=== PATIENT | female | born 2005 | race Caucasian/White ===

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

== ENCOUNTER 2024-04-03 13:33 | Outpatient (RCR) | payer MEDICAID, SELFPAY | END 2024-04-18 23:59 | disposition home or self-care (01) | LOC: SPT 13:33 | PROVIDERS: Visit Provider Orthopaedic Surgery | DX: S83.522D Sprain of posterior cruciate ligament of left knee, subsequent encounter (principal); Z47.89 Encounter for other orthopedic aftercare; X58.XXXD Exposure to other specified factors, subsequent encounter | CPT/HCPCS: 97110; 97140; 97161 ==

== ENCOUNTER 2024-04-19 06:00 | Outpatient (RCR) | payer MEDICAID, SELFPAY | END 2024-05-16 23:59 | disposition home or self-care (01) | LOC: SPT 06:00 | PROVIDERS: Visit Provider Orthopaedic Surgery | DX: S83.522D Sprain of posterior cruciate ligament of left knee, subsequent encounter (principal); X58.XXXD Exposure to other specified factors, subsequent encounter | CPT/HCPCS: 97110 ==

== ENCOUNTER 2024-05-17 06:00 | Outpatient (RCR) | payer MEDICAID, SELFPAY | END 2024-06-16 23:59 | disposition home or self-care (01) | LOC: SPT 06:00 | PROVIDERS: Visit Provider Orthopaedic Surgery | DX: S83.522D Sprain of posterior cruciate ligament of left knee, subsequent encounter (principal); X58.XXXD Exposure to other specified factors, subsequent encounter | CPT/HCPCS: 97110 ==

== ENCOUNTER 2024-06-17 11:54 | Outpatient (RCR) | payer MEDICAID, SELFPAY | END 2024-07-16 23:59 | disposition home or self-care (01) | LOC: SPT 11:54 | PROVIDERS: Visit Provider Orthopaedic Surgery | DX: S83.522D Sprain of posterior cruciate ligament of left knee, subsequent encounter (principal); X58.XXXD Exposure to other specified factors, subsequent encounter | CPT/HCPCS: 97110 ==

== ENCOUNTER 2024-07-17 05:00 | Outpatient (RCR) | payer MEDICAID, SELFPAY | END 2024-08-16 23:59 | disposition home or self-care (01) | LOC: SPT 05:00 | PROVIDERS: Visit Provider Orthopaedic Surgery | DX: S83.522D Sprain of posterior cruciate ligament of left knee, subsequent encounter (principal); X58.XXXD Exposure to other specified factors, subsequent encounter | CPT/HCPCS: 97110 ==

== ENCOUNTER 2024-08-17 05:00 | Outpatient (RCR) | payer MEDICAID, SELFPAY | END 2024-09-15 23:59 | disposition home or self-care (01) | LOC: SPT 05:00 | PROVIDERS: Visit Provider Orthopaedic Surgery | DX: S83.522D Sprain of posterior cruciate ligament of left knee, subsequent encounter (principal); X58.XXXD Exposure to other specified factors, subsequent encounter | CPT/HCPCS: 97110 ==

== ENCOUNTER → 2024-12-08 13:37 | Outpatient (BNVA) | payer MEDICAID, SELFPAY | PROVIDERS: Visit Provider Obstetrics & Gynecology | DX: Z30.9 Encounter for contraceptive management, unspecified (principal) | CPT/HCPCS: 81025 ==

== ENCOUNTER 2024-12-17 20:50 | Emergency (ER) | payer MEDICAID, SELFPAY ==
[2024-12-17 20:54] VITALS: BP 94/59; PULSE 84; RESP 14; TEMP 36.9; O2SAT 98; BMI 22.3
--- OUTSIDE RECORDS SUMMARY | 2024-12-17 20:56 | XMS_ITS | Clinical Summary ---
Author Organization [facility] Address [address] [place] [address] Phone Care Team Providers Care Job Tracer Name Role Phone Unavailable Primary Care Provider Unavailabl e Medications cyclobenzaprine (FLEXERIL) 10 MG tablet Take one tablet (10 mg total) by mouth every 8 (eight) hours as needed for muscle spasms 15 tablet 01/29/2023 Active Social History Tobacco Use Types Packs/Day Years Used Date Smoking Tobacco: Never Assessed Comments Unknown Sex and Gender Information Value Date Recorded Sex Assigned at Not on file Legal Sex Female 10:16 PM GROUP HOME SUPERVISOR Gender Identity Not on file Sexual Orientation Not on file Last Filed Vital Signs Vital Sign Reading Time Taken Comments Blood Pressure 143/92 01/29/2023 10:26 PM GROUP HOME SUPERVISOR Pulse 72 01/29/2023 10:26 PM GROUP HOME SUPERVISOR Temperature 36.8 C (98.2 F) 01/29/2023 10:26 PM GROUP HOME SUPERVISOR Respiratory Rate 18 01/29/2023 10:26 PM GROUP HOME SUPERVISOR Oxygen Saturation 100% 01/29/2023 10:26 PM GROUP HOME SUPERVISOR Inhaled Oxygen Concentration - - Weight 63.5 kg (140 lb) 01/29/2023 10:26 PM GROUP HOME SUPERVISOR Height 162.6 cm (5' 4 ) 01/29/2023 10:26 PM GROUP HOME SUPERVISOR Body Mass Index 24.03 01/29/2023 10:26 PM GROUP HOME SUPERVISOR Plan of Treatment Health Maintenance Due Date Last Done Comments Wellness Child Visit 2 Years and Older 2006 Pediatric Lipid Screening 2013 Annual Depression Screening 07/31/2015 HPV Vaccines (1 - 3-dose series) 07/31/2019 Annual Chlamydia Screening 2020 Meningococcal B Vaccine (1 o f 2 - Standard) 2020 Annual Physical 2022 Hepatitis C Antibody Screen 2022 DTap/Tdap/Td Vaccines (1 - Tdap) 07/31/2023 Flu Vaccine (#1) 11/17/2024 Influenza Vaccine 11/17/2024 Meningococcal ACWY Vaccine Aged Out N o longer eligible based on patient's age to complete this topic Insurance MEDICAID [facility]
[2024-12-17 22:53] LABS: Hematocrit 37.2 % (36-47); Hemoglobin 12.40 g/dL (12.4-14.8); Mean Corpuscular HGB Conc 33.3 g/dL (30-55); Mean Corpuscular Hemoglobin 30.5 pg (27-33); Mean Corpuscular Volume 91.6 fl (85-98); Nucleated Red Blood Cells % 0 %; Platelet Count 230 10^3/cmm (157-399); Red Blood Count 4.06 10^6/uL (3.85-5.65); White Blood Count 4.56 10^3/uL (4.5-13.0)
[2024-12-17 23:09] LABS: Glucose Urine UA Negative (Normal); Nitrate Urine Negative (Negative); Specific Gravity, Urine 1.015 (1.005-1.030)
[2024-12-17 23:13] VITALS: BP 102/51; PULSE 75; O2SAT 100
[2024-12-17 23:23] LABS: Alanine Aminotransferase 22 U/L (0-33); Albumin Level 4.6 g/dL (3.5-5.2); Alkaline Phosphatase 76 U/L (35-105); Anion Gap 16.3 (5-19); Aspartate Amino Transferase 20 U/L (0-32); Blood Urea Nitrogen 8 mg/dL (6-20); Calcium 9.5 mg/dL (8.5-10.5); Carbon Dioxide 26 mmol/L (22-29); Chloride 101 mmol/L (98-107); Creatinine Clr Calc Pharmacy 79.9096; Globulin 2.6 g/dL (1.3-4.6); Glucose 94 mg/dL (65-115); Osmolality Calculated 286 mOsm/kg (285-295); Potassium 4.3 mmol/L (3.5-5.1); Sodium 139 mmol/L (136-145); Total Protein 7.2 g/dL (6.6-8.7)
[2024-12-17 23:27] LABS: UA Manual Slide Review YES
[2024-12-17 23:30] VITALS: BP 102/51; PULSE 64; O2SAT 98
[2024-12-18] VITALS: BP 99/51; PULSE 71; O2SAT 99
[2024-12-18 00:30] VITALS: BP 105/62; PULSE 58; O2SAT 100
[2024-12-18 01:00] VITALS: BP 89/58; PULSE 67; O2SAT 100
--- NOTE | 2024-12-18 03:07 | ED_ITS ---
HPI - 2 General: Chief complaint: Vaginal Bleeding Stated complaint: Bleeding and cramping, 5 wks preg Time Seen by Provider: 12/17/24 22:23 History of Present Illness: 19 yo F, , presents with vaginal ble eding and cramping in early . Pt states she is approximately 5 weeks by LMP. Bleeding began today, bright red; denies clots. Cramping described as painful lower abdominal cramps radiating into the back. Also reports intermittent sharp pelvic pain occurring randomly (not related to intercourse). First . Denies prior abdominal surgeries. Has not taken any medication for pain. No ultrasound to date and no prior quantitative hCG. ROS notable for abdominal pain and back pain; no active cramping at time of exam. No additional systemic complaints documented. 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[place]) Adopted; no contact with biological mother Related Data Home Medications ?Medication ?Instructions ?Recorded ?Confirmed Unable to Assess 12/08/24 12/08/24 Allergies Allergy/AdvReac Type Severity Reaction Status Date / Time No Known Allergies Allergy Verified 12/17/24 20:59 PFSH ED 2 PFSH: Social History Smoking and tobacco/nicotine status: never used tobacco/nicotine Physical Exam 2 Const: COMMON NORMALS: no acute distress, patient oriented x3 and alert HENMT: COMMON NORMALS: normocephalic and atraumatic HEAD & SCALP: n ormocephalic and atraumatic Eye: COMMON NORMALS: Equal, round and reactive pupils present, EOMs intact bilaterally and no scleral icterus PUPIL: Yes Equal, round and reactive pupils present Resp: COMMON NORMALS: normal respiratory effort and No retractions Cardio: COMMON NORMALS: regular rate, regular rhythm and No murmurs present (Cardio) RATE: regular rate RHYTHM: regular rhythm GI: OTHER: Abdomen soft and nonperitoneal, mild bilateral adnexal tenderness and suprapubic tenderness. Neuro: COMMON NORMALS: patient oriented x3 SENSORIUM/ORIENTATION: Yes alert Skin: COMMON NORMALS: no rashes or lesions noted GENERAL SKIN EXAM: no rashes or lesions noted Course 2 Vital Signs: Vital signs: Vital Signs Temperature 98.5 F 12/17/24 20:54 Pulse Rate 67 12/18/24 01:00 Respiratory Rate 14 12/17/24 20:54 Blood Pressure 89/58 12/18/24 01:00 Pulse Oximetry 100 12/18/24 01:00 Oxygen Delivery Me thod Room Air 12/17/24 23:13 MDM - OB/Uterine Contractions Medical Decision Making 19 yo F, G1, ~5 wks by LMP, with new onset bright red vaginal bleeding today and lower abdominal cramping radiating to back; intermittent sharp pelvic pain not related to intercourse. No prior US or hCG quant; first . Vitals stable. PE overall normal; abdomen soft with minimal bilateral lower abdominal tenderness; no active vaginal bleeding or cramping observed. DDx discussed as bleeding in early that can be seen with viable IUP versus miscarriage; provider noted severity of cramps/bleeding helps risk stratify. No clots reported; bleeding started today. hCG was 2300 and transvaginal formal ultrasound shows a gestational sac. Blood type is B+ thus no RhoGAM injection was required. With no active pain or bleeding, she will be discharged with close follow-up to CLAIMS ACCOUNT SPECIALIST so that they can repeat hCG to see if it is doubling appropriately and consider repeat ultrasound when clinically indicated. Patient shows good understanding and agrees to the plan Lab Data 12/17/24 22:45 12/17/24 22:45 Laboratory Results WBC 4.56 10^3/uL (4.5-13.0) 12/17/24 22:45 RBC 4.06 10^6/uL (3.85-5.65) 12/17/24 22:45 Hgb 12.40 g/dL (12.4-14.8) 12/17/24 22:45 Hct 37.2 % (36-47) 12/17/24 22:45 MCV 91.6 fl (85-98) 12/17/24 22:45 MCH 30.5 pg (27-33) 12/17/24 22:45 MCHC 33.3 g/dL (30-55) 12/17/24 22:45 RDW 12.6 % (12.1-15.1) 12/17/24 22:45 Plt Count 230 10^3/cmm (157-399) 12/17/24 22:45 MPV 9.7 fL (7.4-10.4) 12/17/24 22:45 Neut % (Auto) 42.9 % 12/17/24 22:45 Lymph % (Auto) 49.1 % 12/17/24 22:45 Hawkins % (Auto) 7.2 % 12/17/24 22:45 Eos % (Auto) 0.4 % 12/17/24 22:45 Baso % (Auto) 0.2 % 12/17/24 22:45 Neut # (Auto) 1.95 10^3/uL (1.8-8.0) 12/17/24 22:45 Lymph # (Auto) 2.2 10^3/uL (1.5-6.5) 12/17/24 22:45 Hawkins # (Auto) 0.3 10^3/uL (0.2-0.9) 12/17/24 22:45 Eos # (Auto) 0.0 10^3/uL (0.0-0.8) 12/17/24 22:45 Baso # (Auto) 0.0 10^3/uL (0.0-0.1) 12/17/24 22:45 Nucleated RBC % (auto) 0 % 12/17/24 22:45 Nucleated RBCs # 0.0 /100WBC 12/17/24 22:45 Sodium 139 mmol/L (136-145) 12/17/24 22:45 Potassium 4.3 mmol/L (3.5-5.1) 12/17/24 22:45 Chloride 101 mmol/L (98-107) 12/17/24 22:45 Carbon Dioxide 26 mmol/L (22-29) 12/17/24 22:45 Anion Gap 16.3 (5-19) 12/17/24 22:45 BUN 8 mg/dL (6-20) 12/17/24 22:45 Creatinine 1.0 mg/dL (0.5-0.9) H 12/17/24 22:45 GFR Calculation 70.7 mL/min (90-130) L 12/17/24 22:45 Glucose 94 mg/dL (65-115) 12/17/24 22:45 Calculated Osmolality 286 mOsm/kg (285-295) 12/17/24 22:45 Calcium 9.5 mg/dL (8.5-10.5) 12/17/24 22:45 Total Bilirubin 0.3 mg/dL (0.15-1.2) 12/17/24 22:45 AST 20 U/L (0-32) 12/17/24 22:45 ALT 22 U/L (0-33) 12/17/24 22:45 Alkaline Phosphatase 76 U/L (35-105) 12/17/24 22:45 Total Protein 7.2 g/dL (6.6-8.7) 12/17/24 22:45 Albumin 4.6 g/dL (3.5-5.2) 12/17/24 22:45 Globulin 2.6 g/dL (1.3-4.6) 12/17/24 22:45 Ser , Semi-Qnt 2395.00 mIU/mL 12/17/24 22:45 Urine Color Yellow (Yellow) 12/17/24 23:04 Urine Appearance Cloudy (CLEAR) A 12/17/24 23:04 Urine pH 8.0 (5-7) A 12/17/24 23:04 Ur Specific [place] 1.015 (1.005-1.030) 12/17/24 23:04 Urine Protein Negative (Negative) 12/17/24 23:04 Urine Glucose (UA) Negative (Normal) 12/17/24 23:04 Urine Ketones Negative (Negative) 12/17/24 23:04 Urine Blood Negative (Negative) 12/17/24 23:04 Urine Nitrate Negative (Negative) 12/17/24 23:04 Urine Bilirubin Negative (Negative) 12/17/24 23:04 Urine Urobilinogen 1.0 mg/dL (Negative) 12/17/24 23:04 Ur Leukocyte Esterase 1+ (Negative) A 12/17/24 23:04 Urine RBC 0-4 /hpf (0-2) H 12/17/24 23:04 Urine WBC 5-10 /hpf (0-5) H 12/17/24 23:04 Ur Squamous Epith Cells 0-4 /hpf (0-5) H 12/17/24 23:04 Amorphous Sediment 2+ /hpf 12/17/24 23:04 Urine Bacteria 1+ /hpf (NONE) H 12/17/24 23:04 Blood Type B Positive 12/17/24 22:45 Rho(D) Type Rh positive 12/17/24 22:45 Antibody Screen Negative 12/17/24 22:45 All radiology interpretation(s) finalized by discharge Discharge Plan Discharge Patient Disposition: Home Clinical Impression: Vaginal bleeding affecting early Condition: Stable Prescriptions: No Action Unable to Assess Discharge Orders: Discharge ED (Routine); Ordered 12/18/24 Ordered By: Pankaj Camacho Referrals: Ted Baptiste MD [Physician, CLAIMS ACCOUNT SPECIALIST] - 4-7 days Referral Note: Rh+, hcg 2300, gestational sac seen on US. Clinical Impression: Vaginal bleeding affecting early [place],NATHANAEL Vinson [Primary Care Provider, Nurse Practitioner] Discharge Diet: Usual diet Discharge Activity: Increase activity as tolerated Patient Instructions: Threatened Miscarriage (ED), Patient Portal & Clive Instructions Activity Restrictions/Additional Instructions: Ultrasound was able to visualize a small gestational sac in the uterus. You will need to have repeat blood work and repeat ultrasound to see whether is progressing normally. hCG level today was 2300 and should double every 2 days such that if you were to take another blood test in 48 hours hCG level should be roughly 4600. Your blood type is B+ such that you do not require RhoGAM shots with vaginal bleeding during . Please follow-up closely with your CLAIMS ACCOUNT SPECIALIST to schedule repeat blood work and ultrasound. Print Language: Zambian Coding Level of Care Code ED Financial Investigator for Hola Barnes
--- NOTE | 2024-12-18 23:18 | USR_ITS ---
PROCEDURE INFORMATION: Exam: US First Trimester, Transabdominal Exam date and time: 12/18/2024 1:09 AM Age: 19 years old Clinical indication: Lmp or gestational age (in weeks): 5 weeks 1 day; Other: Bleeding; LABS AND CLINICAL REPORTS: Choriogonadotropin in serum (Serum HCG): 2395 mIU/mL Last menstrual period start date: 11/12/2024 Gestational age (Established): 5 w 1 d Estimated due date (Established): 08/19/2025 TECHNIQUE: Imaging protocol: Real-time transabdominal obstetrical ultrasound of the maternal pelvis and a first trimester , less than 14 weeks 0 days, with image documentation. COMPARISON: US abdomen limited [id number] 04/30/2019 12:22 PM FINDINGS: GESTATION: Gestation: A single intrauterine gestation is noted. pole measures no greater than 1 mm. No identifiable yolk sac. Embryo/ cardiac activity (BPM): Non identified Extra-embryonic membranes/Placenta: No evidence of subchorionic hemorrhage. Amniotic/Chorionic fluid: Amniotic and extra-amniotic fluid are normal for gestational age. BIOMETRY: Gestational age (AUA): Estimated gestational age of 5 weeks 0 days. Mean sac diameter: 0.34 cm. EGA (MSD) is 5 w 0 d. Mean gestational sac diameter measures 0.34 cm. BIOPHYSICAL PROFILE: tone (BPP): No reliable heart tones are noted. MATERNAL: Uterus: The uterus measures 7.5 x 4.1 x 5.0 cm. Endometrial bilayer measures 1.9 cm, within normal limits. Cervix: Unremarkable. Endocervical canal is closed. Right ovary/adnexa: In the right ovary is poorly characterized on this exam. Left ovary/adnexa: The left ovary measures 3.8 x 3.4 x 2.9 cm with a volume of 19 mL. Measurements include a dominant 2.7 cm anechoic simple cyst. Normal color Doppler flow is identified within the left ovary. Intraperitoneal space: Small volume simple attenuating free pelvic fluid is noted. US/US OB <=14 wk fetus w transvag IMPRESSION: Findings consistent with a single intrauterine gestation. Sonographic findings demonstrate early gestational age of 5 weeks 0 days-1 day. No identifiable yolk sac or heart tones, consistent with early . Recommend obgyn nurse follow-up and follow-up imaging as clinically recommended.
== END 2024-12-18 02:07 | disposition home or self-care (01) ==
PROVIDERS: Emergency Provider Student in an Organized Health Care Education/Training Program; PCP Nurse Practitioner Family
DX: O20.9 Hemorrhage in early pregnancy, unspecified (principal); Z3A.01 Less than 8 weeks gestation of pregnancy
CPT/HCPCS: 36415; 76801; 76817; 80053; 81001; 84702; 85025; 86850; 86900; 99284

== ENCOUNTER → 2024-12-22 14:30 | Outpatient (BNVA) | payer MEDICAID, SELFPAY | PROVIDERS: PCP Nurse Practitioner Family; Visit Provider Obstetrics & Gynecology | DX: Z34.91 Encounter for supervision of normal pregnancy, unspecified, first trimester (principal) | CPT/HCPCS: 84702; 86850; 86900 ==

== ENCOUNTER → 2025-01-20 10:08 | Outpatient (BNVA) | payer MEDICAID, SELFPAY | PROVIDERS: PCP Nurse Practitioner Family; Visit Provider Nurse Practitioner Women's Health | DX: Z34.91 Encounter for supervision of normal pregnancy, unspecified, first trimester (principal); Z3A.09 9 weeks gestation of pregnancy | CPT/HCPCS: 80307; 84315; 86592; 86762; 86803; 87086; 87340; 87806 ==

== ENCOUNTER → 2025-02-04 10:23 | Outpatient (BNVA) | payer MEDICAID, SELFPAY | PROVIDERS: PCP Nurse Practitioner Family; Visit Provider Obstetrics & Gynecology | DX: Z34.01 Encounter for supervision of normal first pregnancy, first trimester (principal); Z3A.12 12 weeks gestation of pregnancy | CPT/HCPCS: 84315 ==

== ENCOUNTER 2025-02-09 21:06 | Emergency (ER) | payer MEDICAID, SELFPAY ==
--- OUTSIDE RECORDS SUMMARY | 2025-02-09 21:13 | XMS_ITS | Clinical Summary ---
Author Organization [facility] Address [address] [place] [address] Phone Care Team Providers Care Maintenance Fitter Name Role Phone Unavailable Primary Care Provider [...] on file Legal Sex Female 10:16 PM RN TRANSITIONAL CARE Gender Identity Not on file Sexual Orientation Not on file Last Filed Vital Signs Vital Sign Reading Time Taken Comments Blood Pressure 143/92 01/29/2023 10:26 PM RN TRANSITIONAL CARE Pulse 72 01/29/2023 10:26 PM RN TRANSITIONAL CARE Temperature 36.8 C (98.2 F) 01/29/2023 10:26 PM RN TRANSITIONAL CARE Respiratory Rate 18 01/29/2023 10:26 PM RN TRANSITIONAL CARE Oxygen Saturation 100% 01/29/2023 10:26 PM RN TRANSITIONAL CARE Inhaled Oxygen Concentration - - Weight 63.5 kg (140 lb) 01/29/2023 10:26 PM RN TRANSITIONAL CARE Height 162.6 cm (5' 4 ) 01/29/2023 10:26 PM RN TRANSITIONAL CARE Body Mass Index 24.03 01/29/2023 10:26 PM RN TRANSITIONAL CARE Plan of Treatment Health Maintenance Due Date [...] to complete this topic Insurance [place]ID [place] [facility]
[2025-02-09 21:15] VITALS: BP 105/62; PULSE 107; RESP 16; TEMP 37.1; O2SAT 98; BMI 22.3
--- NOTE | 2025-02-09 21:23 | ED_ITS ---
HPI - URI/Sore Throat General: Chief Complaint: Upper Respiratory Infection Stated Complaint: 13 Wks Preg\Sore Throat Time Seen by Provider: 02/09/25 21:23 History of Present Illness: 19-year-old female presents to the [facility] ency room she is currently 13 weeks gestation is complaining of sore throat was seen earlier today at urgent care and diagnosed with strep pharyngitis. She was prescribed some antibiotics she has been feeling weak she has also had significant nausea and vomiting which she has not experienced up to this point in . She denies any vaginal discharge or bleeding Associated symptoms: Reports nausea and vomiting; Deny abdominal pain, chills, chest pain or fever(s) Related Data Home Medications ?Medication ?Instructions ?Recorded ?Confirmed [id number] 400 mcg-om3 35 mg-dha 25 tab PO .daily 02/04/25 mg-epa 5 mg-fish oil chewable tablet Previous Rx's ?Medication ?Instructions ?Recorded amoxicillin 500 mg capsule 500 mg PO TID 10 days #30 c aps 02/09/25 promethazine 25 mg tablet 25 mg PO Q6H PRN nausea and 02/09/25 vomiting #20 tabs Allergies Allergy/AdvReac Type Severity Reaction Status Date / Time No Known Allergies Allergy Verified 02/04/25 10:33 Review of Systems Const: Denies: fever(s) or chills Card: Denies: chest pain Resp: Denies: dyspnea GI: Reports: nausea and vomiting; Denies: abdominal pain : Denies: dysuria, urinary frequency or urinary urgency Musc: Denies: neck pain or back pain Skin/Breast: Denies: rash PFSH ED PFSH: Medical History No pertinent past medical history neghx: htn, thyroid, dm, dvt/pe PCP: Ana Medina Surgical History S/P left knee arthroscopy x2 Family History Other Adopted Social History Smoking and tobacco/nicotine status: former use of tobacco/nicotine Physical Exam Const: GENERAL APPEARANCE: cooperative ORIENTATION/CONSCIOUSNESS: Yes awake, Yes oriented to person, Yes oriented to place and Yes oriented to time HENMT: COMMON NORMALS: normocephalic, atraumatic and hearing grossly normal bilaterally HEAD & SCALP: normocephalic and atraumatic Resp: COMMON NORMALS: normal respiratory effort, No retractions, No use of accessory muscles and clear to auscultation bilaterally AUSCULTATION: clear to auscultation bilaterally Cardio: COMMON NORMALS: regular rate, regular rhythm and No murmurs present (Cardio) RATE: regular rate RHYTHM: regular rhythm GI: COMMON NORMALS: Soft to palpation and No hepatosplenomegaly present AUSCULTATION: Yes normoactive bowel sounds PALPATION: Yes Soft to palpation, No Tenderness to palpation present (GI), No Guarding due to palpation present (GI) and Yes No hepatosplenomegaly present Extremity: COMMON NORMALS: normal to inspection, capillary refill normal, no clubbing, cyanosis or edema, no calf tenderness and no pedal edema Neuro: SENSORIUM/ORIENTATION: Yes oriented to person, Yes oriented to place and Yes oriented to time Skin: COMMON NORMALS: no rashes or lesions noted GENERAL SKIN EXAM: no rashes or lesions noted Course Vital Signs: Vital signs: Vital Signs Temperature 98.7 F 02/09/25 21:15 Pulse Rate 102 H 02/09/25 23:29 Respiratory Rate 16 02/09/25 23:29 Blood Pressure 103/51 02/09/25 23:29 Pulse Oximetry 99 02/09/25 23:29 Oxygen Delivery Me thod Room Air 02/09/25 22:30 MDM - URI/Sore Throat Medical Decision Making Patient feels better after the fluids and antiemetics. Will discharge her home she does locate she has a mild cystitis on the UA as well. Will add amoxicillin 500 3 times daily. She is given ceftriaxone single dose here she can start the amoxicillin tomorrow afternoon this gives her time to manage her nausea and vomiting she discharged home with antiemetics to use as needed follow-up with her TESTING SPECIALIST team later this week. Medical Records I reviewed the patient's medical records. Lab Data I reviewed the patient's lab results. Laboratory Results Urine Color Yellow (Yellow) 02/09/25 22:25 Urine Appearance Clear (CLEAR) 02/09/25 22:25 Urine pH 5.5 (5-7) 02/09/25: Ur Specific [place] 1.031 (1.005-1.030) H 02/09/25: Urine Protein Trace (Negative) A 02/09/25: Urine Glucose (UA) Negative (Normal) 02/09/25: Urine Ketones 4+ (Negative) 02/09/25: Urine Blood Negative (Negative) 02/09/25: Urine Nitrate Negative (Negative) 02/09/25: Urine Bilirubin Negative (Negative) 02/09/25: Urine Urobilinogen 1.0 mg/dL (Negative) 02/09/25: Ur Leukocyte Esterase 1+ (Negative) A 02/09/25: Urine RBC 0-2 /hpf (0-2) 02/09/25: Urine WBC 21-50 /hpf (0-5) H 02/09/25: Ur Squamous Epith Cells 11-20 /hpf (0-5) H 02/09/25: Amorphous Sediment Not Reportable 02/09/25: Urine Bacteria Trace /hpf (NONE) 02/09/25: Hyaline Casts 0.40 /lpf 02/09/25: No radiology studies performed this visit Discharge Plan Discharge Patient Disposition: Home Clinical Impression: Strep pharyngitis, Cystitis, Hyperemesis gravidarum Condition: Stable Prescriptions: New amoxicillin 500 mg capsule 500 mg PO TID 10 Days Qty: 30 0RF promethazine 25 mg tablet 25 mg PO Q6H PRN (Reason: nausea and vomiting) Qty: 20 0RF No Action [id number] oil 400 mcg-35 mg -25 mg-5 mg tablet,chewable PO .daily Discharge Orders: Discharge ED (Routine); Ordered 02/09/25 Ordered By: Eliot Encarnacion Referrals: Alisson Medina APN [Primary Care Provider, Nurse Practitioner] Discharge Diet: Full LIquid Discharge Activity: Increase activity as tolerated Patient Instructions: Opioid Safety, Pain Management, Patient Portal & Clive Instructions Activity Restrictions/Additional Instructions: Thank you for choosing [facility] for your healthcare needs today. It is very important that you follow up as instructed or that you return to the Emergency Department should you have concerns or if your condition changes or worsens in any way. Emergency department visits are focused on emergent conditions, in some cases you may require further evaluation on an outpatient basis. You are seen in the emergency room with complaints of nausea and vomiting. It also reported that she had been diagnosed with strep earlier in the week by a test. We noted a mild bladder infection when you were seen in the emergency room as well. You are given a dose of Rocephin while in the emergency room as well as IV fluids and nausea medications. Will discharge you home with promethazine to use as needed for nausea additionally will start you on amoxicillin 1 tablet 3 times a day for 10 days. Follow-up with your primary counterperson. (Please note that included in your discharge packet is information concerning opioid safety and pain management. This information is given to all patients were discharged from the ER regardless of their discharge diagnosis or the medicines they usually take or are prescribed.) Print Language: Yi Coding Level of Care Code ED Corrections Identification Technician for Hola Barnes
[2025-02-09 21:27] VITALS: BP 107/63; PULSE 90; O2SAT 100
[2025-02-09 22:01] VITALS: PULSE 78; O2SAT 100
[2025-02-09 22:30] VITALS: BP 110/54; PULSE 73; O2SAT 100
[2025-02-09 22:38] LABS: Glucose Urine UA Negative (Normal); Nitrate Urine Negative (Negative)
[2025-02-09 22:41] LABS: Add Urine Microscopic? YES
[2025-02-09 22:49] LABS: Specific Gravity, Urine 1.031 (1.005-1.030)
[2025-02-09] MEDS: cefTRIAXone 1,000 mg SDV 1000 MG IVP (23:24)
[2025-02-09 23:29] VITALS: BP 103/51; PULSE 102; RESP 16; O2SAT 99
== END 2025-02-09 23:33 | disposition home or self-care (01) ==
PROVIDERS: Emergency Provider Family Medicine; PCP Nurse Practitioner Family
DX: O21.0 Mild hyperemesis gravidarum (principal); Z3A.13 13 weeks gestation of pregnancy; O23.11 Infections of bladder in pregnancy, first trimester; N30.90 Cystitis, unspecified without hematuria; O26.891 Other specified pregnancy related conditions, first trimester; J02.0 Streptococcal pharyngitis
CPT/HCPCS: 81001; 96361; 96374; 96375; 99284; J0696; J0780; J7030

== ENCOUNTER → 2025-03-05 10:26 | Outpatient (BNVA) | payer MEDICAID, SELFPAY | PROVIDERS: PCP Nurse Practitioner Family; Visit Provider Nurse Practitioner Women's Health | DX: Z34.00 Encounter for supervision of normal first pregnancy, unspecified trimester (principal); Z34.90 Encounter for supervision of normal pregnancy, unspecified, unspecified trimester; Z34.01 Encounter for supervision of normal first pregnancy, first trimester | CPT/HCPCS: 84315; 87086; 87491; 87591; 87661 ==

== ENCOUNTER 2025-03-16 00:40 | Emergency (ER) | payer MEDICAID, SELFPAY ==
[2025-03-16 00:42] VITALS: BP 106/70; PULSE 63; RESP 18; TEMP 36.3; O2SAT 100; BMI 22.6
--- OUTSIDE RECORDS SUMMARY | 2025-03-16 00:49 | XMS_ITS | Clinical Summary ---
Author Organization [facility] Address [address] [place] [address] Phone Care Team Providers Care Per Diem Physical Therapist Name Role Phone Unavailable Primary Care Provider [...] on file Legal Sex Female 10:16 PM [employer] Gender Identity Not on file Sexual Orientation Not on file Last Filed Vital Signs Vital Sign Reading Time Taken Comments Blood Pressure 143/92 01/29/2023 10:26 PM [employer] Pulse 72 01/29/2023 10:26 PM [employer] Temperature 36.8 C (98.2 F) 01/29/2023 10:26 PM [employer] Respiratory Rate 18 01/29/2023 10:26 PM [employer] Oxygen Saturation 100% 01/29/2023 10:26 PM [employer] Inhaled Oxygen Concentration - - Weight 63.5 kg (140 lb) 01/29/2023 10:26 PM [employer] Height 162.6 cm (5' 4 ) 01/29/2023 10:26 PM [employer] Body Mass Index 24.03 01/29/2023 10:26 PM [employer] Plan of Treatment Health Maintenance Due Date Last Done Comments Wellness Child Visit 2 Years and Older 2006 Pediatric Lipid Screening 2013 Annual Depression Screening 07/31/2015 HPV Vaccines (1 - 3-dose series) 07/31/2019 Annual Chlamydia Screening 2020 Meningococcal ACWY Vaccine (1 - 2-dose series) 021 Meningococcal B Vaccine (1 of 2 - Standard) 2020 Annual Physical 2022 Hepatitis C Antibody Screen 2022 DTap/Tdap/Td Vaccines (1 - Tdap) 07/31/2023 Flu Vaccine (#1) 11/17/2024 Influenza Vaccine 11/17/2024 Insurance MEDICAID [facility]
--- OUTSIDE RECORDS SUMMARY | 2025-03-16 00:49 | XMS_ITS | Patient Health Record ---
Author Organization [facility] Address [address] [place] [address] Care Team Providers Care Genetics Physician Name Role Phone [facility] Primary Care Provider [facility] Unavailable Unavailable Allergies Allergen (clinical drug ingredient) Drug/Non Drug Allergy documented on EMR Reaction Allergy Type Onset Date Status No Known Drug Allergy Unknown Drug Allergy Active Results Component Value Reference Range Flag Notes Influenza A/B - 63645 Reviewed date:05/26/2024 04:07:40 PM Interpretation: Performing Lab: Notes/Report: A neg B positive Rapid Strep (Strep A) -80198 Reviewed date:07/31/2024 11:26:49 AM Interpretation: Performing Lab: Notes/Report: Strep positive Influenza A/B - 66716 Reviewed date:02/09/2025 03:29:10 PM Interpretation: Performing Lab: Notes/Report: A neg B neg Rapid Strep (Strep A) -78703 Reviewed date:02/09/2025 03:28:52 PM Interpretation: Performing Lab: Notes/Report: Strep positive Thyroid Stimulating Hormone (TSH) 29011 Reviewed date:07/11/2024 01:17:54 PM Interpretation: Performing Lab: Notes/Report: Diagnosis Description: Encounter for screening for other suspected endocrine disorder TSH 2.392 .358-3.740 MlU/ML Lipid Panel Reflex DLDL 8006 1, 70749 Reviewed date:07/11/2024 01:18:09 PM Interpretation: Performing Lab: Notes/Report: Diagnosis Description: Encounter for screening for lipoid disorders Trig 72 NA Classification Guidelines:Triglycerides Adults: >20yrs Desirable <150 Borderline High 150-199 High 200-499 Very high >=500 Children: Male 0-4 yr 22-99 5-9 yr 30-101 10-14 yr 32-125 15-19 yr 37-148 Children: Female 0-4 yr 34-112 5-9 yr 32-105 10-14 yr 37-131 15-19 yr 39-132 Chol 101 <=200 MG/DL HDL 37 39-96 MG/DL LOW Reference Ranges:HDL Male: 5-9y 38-75 10-14y 37-74 15-19y 30-63 >=20y 40-59 Female: 5-9y 36-73 10-14y 37-70 15-19y 35-74 >=20y 40-59 CH/HDL 2.7 0.0-4.9 RATIO LDL 49 0-130 MG/DL LDL result is inaccurate , if Trig is >400 mg/dl. See DLDL result. Hemoglobin A1c 26535 Reviewed date:07/11/2024 01:17:34 PM Interpretation: Performing Lab: Notes/Report: Diagnosis Description: Hypoglycemia, unspecified Hgb A1c 4.7 3.8-6.4 % Interpretation Of Hgb A1c: 4.5-6.2 % nondiabetics. >7.0 % diabetics. EAG 88 NA Estimated Aver age Glucose(EAG). Comprehensive Metabolic Pane l (CMP) 81227 Reviewed date:07/11/2024 01:17:00 PM Interpretation: Performing Lab: Notes/Report: Diagnosis Description: Other specified abnormal findings of blood chemistry Glucose Serum 75 71-110 MG/DL Testing p erformed at [facility], [address] [place] [address] [place] [address]. CLIA ID#: [id number] BUN 12 7-21 MG/DL Creat .89 .51-1.17 MG/DL X-fdfnbz-x-benzoquinone imine (NAPQI) is a metabolite of acetaminophen, NAPQI concentrations of apparoximately 10 mg/L correlation to toxic levels of acetaminophen demonstrates a greater than or equil to 10% change in results. NAPQI concentrations greater than this may lead to falsely depressed results for patient samples. Use of this assay is not recommended for patients undergoing treatment with phenindione, due to the potential for falsely depressed results. GFR 94.8 NA Calculation pe rformed from GFR calculator provided by the [employer]. Glomerular Filtration rate(GRF) is the best overall index of kidney function. Normal GFR varies according to age,sex, body size, and declines with age. The National [employer] recommends using the CKD-EPI Creatinine Equation(2020) to estimate GFR. BUN/Creat Ratio 13.5 12.0-20.0 % Total Protein 6.5 5.8-8.0 G/DL Albumin 4.6 3.2-4.8 G/DL Globulin 1.9 2.3-3.5 G/DL LOW Alb/Glob 2.4 0.8-2.2 HI Calcium 8.9 8.7-10.4 MG/DL Sodium 143 136-145 MMOL/L Potassium 4.0 3.5-5.1 MMOL/L Chloride 105 98-107 MMOL/L CO2 28.8 20.0-31.0 MMOL/L Anion Gap 13 5-15 Alk Phos 72 46-116 Bili Total .6 .3-1.2 MG/DL Use of this assay is not recommended for patients undergoing treatment with eltrombopag due to the potential for falsely elevated results. AST/SGOT 10 15-37 UNIT/L LOW ALT/SGPT 9 12-78 UNIT/L LOW Osmo Serum,Calculated 294 280-300 MOSM/KG CBC w\ Auto Diff 08849 Reviewed date:07/11/2024 01:17:22 PM Interpretation: Performing Lab: Notes/Report: Diagnosis Description: Other specified abnormal findings of blood chemistry WBC 4.9 4.5-11.0 X10'3 RBC 4.14 4.00-5.20 X10'6 Hgb 12.3 12.0-16.0 G/DL Hct 39.4 36.0-46.0 % MCV 95.2 80.0-100.0 FL MCH 29.7 27.0-31.0 PG MCHC 31.2 31.0-37.0 G/DL Platelet 241 150-400 X10'3 RDW-SD 47.7 35.0-49.0 FL RDW-CV 13.3 12.2-15.6 % MPV 11.3 9.2-12.0 FL Neutro Auto% 49.0 40.0-70.0 % Lymph Auto% 41.4 22.0-44.0 % Grayson Auto% 8.2 3.0-7.0 % HI Eos Auto% .6 2.0-4.0 % LOW Baso Auto% 0.4 0.0-1.0 % Imm Gran% .4 .0-.4 % Neutro Abs 2.40 .80-7.70 Absolute Neutrophil Count 2400 NA Lymph Abs 2.03 .10-4.10 Grayson Abs .40 .20-1.00 Eos Abs .03 .00-.40 Baso Abs .02 .00-.20 Imm Gran Abs .02 .00-.10 NRBC# .00 .00-.20 X10'3 NRBC% .00 .00-.20 /100 int act WBC's Reason For Referral No Information Medications Medication SIG (Take, Route, Frequency, Duration) Notes Start Date End Date Status Ondansetron HCl 4 MG Tablet 1 tablet Orally Once a day; Duration: 30 day(s) 11/27/2023 Not-Taking Diclofenac Sodium 75 MG Tablet Delayed Release TAKE 1 TABLET BY MOUTH TWICE DAILY Oral; Duration: 30 Days Not-Taking Ezpyqkla-Icngqpnrb-Olbltq th 3.5-04979-3.1 Suspension 1 drop into affected eye Ophthalmic Four times a day; Duration: 5 days 07/10/2024 Not-Taking Oseltamivir Phosphate 75 MG Capsule 1 capsule Orally Twice a day; Duration: 5 day(s) 05/26/2024 Not-Taking Ondansetron HCl 4 MG Tablet 1 tablet Orally q 4 hours prn nausea; Duration: 30 07/31/2024 Not-Taking Immunizations Vaccine Route Administration Date Status Comme nts Flucelvax Trivalent, Syringe 0.5 mL, PF Unknown 025 Refused Flucelvax Trivalent, Syringe 0.5 mL, PF Unknown 025 Refused Social History Tobacco Use: Social History Observation Description Date Details (start date - stop date) Never Smoker NA - NA Social History Depression Screening Social Info Question Answer Notes depression screening findings Findings Negative (0 -4) PHQ-9 Little interest or p brayan in doing things Not at all Feeling down, depressed, or hopeless Not at all Trouble falling or staying asleep, or sleeping t oo much Not at all Feeling tired or having little energy Not at all Poor appetite or overeating Not at all Feeling bad about yourself, or that you are a failure, or have let yourself or your family down Not at all Trouble concentrating on thi ngs, such as reading the newspaper or watching television Not at all Moving or speaking so slowly that other people could have noticed. Or the opposite ? being so fidgety or restless that you have been moving around a lot more than usual Not at all Thoughts that you would be b manuel off , or of hurting yourself in some way Not at all Total Score 0 Tobacco Use: Social Info Question Answer Notes Tobacco Control (Standard) Tobacco use: Nonsmoker Section Notes: Depression screen completed 03/20/2023 score 0 phq9 07/10/2024 Depression screen completed 03/20/2023 score 0 phq9 07/10/2024 Depression screen completed 03/20/2023 score 0 Depression screen completed 03/20/2023 score 0 Depression screen completed 03/20/2023 score 0 Depression screen completed 03/20/2023 score 0 phq9 07/10/2024 Depression screen completed 03/20/2023 score 0 phq9 07/10/2024 Problems Problem Type SNOMED Code ICD Code Onset Dates Problem Status W/U Status Risk Notes Problem Acute frontal sinusitis (94587780) Acute recurrent frontal sinusitis (J01.11) Active confirmed Problem Excessive thirst (88844254) Polydipsia (R63.1) Active confirmed Problem Iron deficiency anemia (97052095) Other iron deficiency anemia (D50.8) Active confirmed Problem Bronchitis (13349674) Bronchitis (J40) Active confirmed Problem Acute pharyngitis (367490290) Acute pharyngitis, unspecified etiology (J02.9) Active confirmed Problem Sinusitis (91873214) Sinusitis (J32.9) Active confirmed Problem Amenorrhea (51815308) Amenorrhea (N91.2) Active confirmed Problem Acute maxillary sinusitis (46358191) Acute non-recurrent maxillary sinusitis (J01.00) Active confirmed Problem Laboratory test result abnormal (184620564) Abnormal laboratory test result (R89.9) Active confirmed Problem Hypoglycemia (961705896) Hypoglycemia (E16.2) Active confirmed Problem Acute frontal sinusitis (87730545) Acute non-recurrent frontal sinusitis (J01.10) Active confirmed Problem Streptococcal sore throat (disorder) (45432822) Strep pharyngitis (J02.0) Active confirmed Problem Environmental allergy (882738907) Environmental allergies (Z91.09) Active confirmed Vital Signs Heart Rate 113 /min 02/09/2025 Temperature 97.7 degrees Fahrenheit 02/09/2025 Respiratory Rate 20 /min 02/09/2025 Blood pressure diastolic 60 mm Hg 02/09/2025 Oximetry 100 % 02/09/2025 Height-cm 162.56 cm 02/09/2025 Weight-kg 51.26 kg 02/09/2025 BMI Percentile 73.4 % 07/31/2024 Height 64 in 02/09/2025 Blood pressure systolic 102 mm Hg 02/09/2025 Weight 113 lbs 02/09/2025 BMI 19.39 kg/m2 02/09/2025 Encounters Encounter Location Date Provider Diagnosis [facility] [address] [address] 07/31/2024 Alisson Medina Sore throat J02.9 ; Nausea R11.0 and Sinusitis J32.9 [facility] [address] [address] 07/10/2024 [facility] Encounter for immunization Z23 ; Conjunctivitis H10.9 ; Immunization not carried out because of patient refusal Z28.21 ; Hypoglycemia E16.2 ; Abnormal CBC R79.89 ; Thyroid disorder screen Z13.29 ; Lipid screening Z13.220 and Depression screen Z13.31 [facility] [address] [address] 05/26/2024 Alisson Medina Diarrhea R19.7 ; Cou gh R05.9 ; Influenza B J10.1 and Sinusitis J32.9 [facility] [address] [address] 01/12/2025 [facility] Encounter for immunization Z23 ; Abdominal pain R10.9 and Immunization not carried out because of patient refusal Z28.21 [facility] [address] [address] 02/09/2025 [facility] Medina Nausea & vomiting R1 1.2 ; Z33.1 and Strep pharyngitis J02.[address] [address] 12/22/2024 [facility] Sinusitis J32.9 Assessments Encounter Date Diagnosis (ICD Code) Assessment Notes Treatment Notes Treatment Clinical Notes Section Notes 07/10/2024 Encounter for immunization (ICD-10 - Z23) 07/10/2024 Conjunctivitis (ICD-10 - H10.9) maxitrol 12/22/2024 Sinusitis (ICD-10 - J32.9) 02/09/2025 Nausea & vomiting (ICD-10 - R11.2) rapid strep; positive flu swab negative 01/12/2025 Abdominal pain (ICD-10 - R10.9) report problems 07/31/2024 Nausea (ICD-10 - R11.0) zofran 07/31/2024 Sore throat (ICD-10 - J02.9) rapid strep; positive 02/09/2025 (ICD-10 - Z33.1) ob as planned 01/12/2025 Encounter for immunization (ICD-10 - Z23) 05/26/2024 Diarrhea (ICD-10 - R19.7) flu swab; positive flu B 05/26/2024 Cough (ICD-10 - R05.9) 05/26/2024 Influenza B (ICD-10 - J10.1) tamiflu 01/12/2025 Immunization not carried out because of patient refusal (ICD-10 - Z28.21) 07/31/2024 Sinusitis (ICD-10 - J32.9) depomedrol/dec adron im z pearl mucinex d 02/09/2025 Strep pharyngitis (ICD-10 - J02.0) z pearl 07/10/2024 Immunization not carried out because of patient refusal (ICD-10 - Z28.21) 07/10/2024 Hypoglycemia (ICD-10 - E16.2) ha1c 05/26/2024 Sinusitis (ICD-10 - J32.9) depomedrol/dec adron im z pearl 07/10/2024 Abnormal CBC (ICD-10 - R79.89) cbc cmp 07/10/2024 Thyroid disorder screen (ICD-10 - Z13.29) tsh 07/10/2024 Lipid screening (ICD-10 - Z13.220) lipids 07/10/2024 Depression screen (ICD-10 - Z13.31) 05/26/2024 Other Questions asked and answered; discharged to home. 07/10/2024 Other Questions asked and answered; discharged to home. Venipuncture: Performed by:Alyx NAVA Attempts:x1 Location:RAC Needle gauge:21g Patient tolerated well. 07/31/2024 Other Questions asked and answered; discharged to home. 01/12/2025 Other Questions asked and answered; discharged to home. 02/09/2025 Other Questions asked and answered; discharged to home. Plan Of Treatment No Information Insurance Providers Payer Name Payer Address Payer Phone Subscriber Number Group Number Insured Name Patient Relationship to Insured Coverage Start Date Coverage End Date [place] [address] [place] [address] [id number] Kortney Watkins Self - patient is the insured Medications Administered Medication Instructions Date of Administration Dosage Notes cefTRIAXone Sodium 11/22/2021 1 g ndc 04 [id number] pt tolerated well/instructed to wait 20 min DEPO-Medrol 01/17/2022 40 mg ndc 87119-499 2-1 pt tolerated well/instructed to wait 20 min DEPO-Medrol 05/26/2024 40 mg ndc 75144-779 3-01 pt tolerated well/instructed to wait 20 min DEPO-Medrol 07/31/2024 40 mg ndc 45711-038 3-01 pt tolerated well/instructed to wait 20 min DEPO-Medrol 12/01/2022 40 mg ndc 20175-144 3-01 pt tolerated well/instructed to wait 20 min DEPO-Medrol 11/22/2021 80 mg ndc 29262-485 2-1 pt tolerated well/instructed to wait 20 min dexAMETHasone 11/22/2021 4 mL [id number] 9-30 pt tolerated well/instructed to wait 20 min dexAMETHasone 01/17/2022 4 mg ndc 35248-2 39-30 pt tolerated well/instructed to wait 20 min dexAMETHasone 12/01/2022 4 mL ndc 55419-5 430-00 pt tolerated well/instructed to wait 20 min dexAMETHasone 05/26/2024 4 mg [facility] 66659-2 423-00 pt tolerated well/instructed to wait 20 min dexAMETHasone 07/31/2024 4 mg [facility] 00623-8 423-00 pt tolerated well/instructed to wait 20 min Rocephin 01/17/2022 250 mg [facility] 9160-4263- 11 pt tolerated well/instructed to wait 20 min Rocephin 12/01/2022 1 g [facility] [address] -11 pt tolerated well/instructed to wait 20 min Medical (General) History Medical History History ICD Code PCL tear left knee mononucleosis fracture right thumb Surgical History Surgery Date(Month/Year) Repeat 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
[2025-03-16 02:48] LABS: Hematocrit 33.0 % (36-47); Hemoglobin 10.80 g/dL (12.4-14.8); Mean Corpuscular HGB Conc 32.7 g/dL (30-55); Mean Corpuscular Hemoglobin 30.3 pg (27-33); Mean Corpuscular Volume 92.7 fl (85-98); Nucleated Red Blood Cells % 0 %; Platelet Count 211 10^3/cmm (157-399); Red Blood Count 3.56 10^6/uL (3.85-5.65); White Blood Count 7.46 10^3/uL (4.5-13.0)
[2025-03-16 03:17] LABS: Blood Urea Nitrogen 9 mg/dL (6-20); Calcium 9.5 mg/dL (8.5-10.5); Carbon Dioxide 22 mmol/L (22-29); Chloride 102 mmol/L (98-107); Glucose 85 mg/dL (65-115); Lipase 55 U/L (13-60); Osmolality Calculated 280 mOsm/kg (285-295); Sodium 136 mmol/L (136-145)
[2025-03-16 03:21] LABS: Anion Gap 16.3 (5-19); Potassium 4.3 mmol/L (3.5-5.1)
[2025-03-16 05:10] VITALS: PULSE 65; O2SAT 99
[2025-03-16 05:20] LABS: Glucose Urine UA Negative (Normal); Nitrate Urine Negative (Negative); Specific Gravity, Urine 1.010 (1.005-1.030)
[2025-03-16 05:25] LABS: Add Urine Microscopic? YES
--- NOTE | 2025-03-16 05:31 | ED_ITS ---
HPI - General Adult 2 General: Chief complaint: Abdominal Pain Stated complaint: 13 Weeks\Baby not Kicked\Mucas Time Seen by Provider: 03/16/25 04:33 History of Present Illness: Patient is a 19-year-old healthy female at 17w5d gestation with a chief complaint of concern about decreased movement in the past few days. She states that both of her sisters have miscarried between 18 to 21 weeks and she has become concerned about her . She has not had a fever. She denies shortness of breath or chest pain. She denies nausea or vomiting. Patient states that throughout her , she has had low abdomen cramping which is unchanged and has not worsened in severity. She denies dysuria though she has had a little bit of increased frequency throughout her . Patient states that she noted a little bit of increased vaginal mucus but she has had routine care, has been tested for STIs and has tested negative. She denies pain with intercourse and denies vaginal bleeding. She denies diarrhea or change in bowel habits. Related Data Home Medications ?Medication ?Instructions ?Recorded ?Confirmed [id number] 400 mcg-om3 35 mg-dha 25 tab PO .daily 03/05/25 mg-epa 5 mg-fish oil chewable tablet Allergies Allergy/AdvReac Type Severity Reaction Status Date / Time No Known Allergies Allergy Verified 03/05/25 10:41 [facility] ED 2 PFSH: Medical History (Updated 03/16/25 @ 05:36 by Lisa Ren MD) No pertinent past medical history neghx: htn, thyroid, dm, dvt/pe PCP: Anahilario Medina Surgical History S/P left knee arthroscopy x2 Family History Other Adopted Social History Smoking and tobacco/nicotine status: former use of tobacco/nicotine Female Reproductive History: Date of last menstrual period: 11/12/24 Physical Exam 2 Narrative: EXAM NARRATIVE: Vital signs were reviewed. Patient is alert and oriented. Patient is breathing comfortably, no increased WOB or accessory muscle use. SpO2 is above 95% on RA. Patient has clear lungs b/l, no rhonchi, wheezing or crackles. No hypotension or tachycardia. Abdomen is soft, nondistended. There is only mild suprapubic discomfort w/palpation. Negative Carranza's sign. No pain w/palpation over McBurney's point. No CVA tenderness w/percussion of the flanks. FH and movement can be appreciated on BSUS. Patient is moving all extremities, no deformity or gross injury. No lower extremity edema or asymmetry. Course 2 Vital Signs: Vital signs: Vital Signs Temperature 97.4 F L 03/16/25 00:42 Pulse Rate 65 03/16/25 05:10 Respiratory Rate 18 03/16/25 00:42 Blood Pressure 106/70 03/16/25 00:42 Pulse Oximetry 99 03/16/25 05:10 Oxygen Delivery Me thod Room Air 03/16/25 05:10 MDM - General Adult Medical Decision Making 19yo F w/cc of concerned about her due to perceived decrease in movement. Patient has had some low abdomen cramping throughout her but this is unchanged. She denies new urinary symptoms though she has had increase in frequency throughout her . Differential diagnosis includes, is not limited to, urinary tract infection, STI, cervicitis, pain due to normal developing , appendicitis, cholecystitis, ovarian pathology, other. Initial exam, patient is HemoCue stable nontoxic-appearing and has a benign abdomen. She was evaluate CBC, CMP, lipase and UA. Bedside ultrasound demonstrates FH and movement. Lab work demonstrates a normal white blood cell count. There is no actionable electrolyte abnormalities. She has normal kidney function, liver function and normal lipase. Urine does not demonstrate nitrites, significant white blood cells or bacteriuria. This is not consistent with a urinary tract infection. STI screening pending. At this time, patient is appropriate for discharge and routine [employer] follow-up. Patient was counseled on supportive care at home, given return precautions and discharged in stable condition with recommendation for outpatient follow-up with primary care nurse or doctor. Lab Data 03/16/25 02:38 03/16/25 02:38 Laboratory Results WBC 7.46 10^3/uL (4.5-13.0) 03/16/25 02:38 RBC 3.56 10^6/uL (3.85-5.65) L 03/16/25 02:38 Hgb 10.80 g/dL (12.4-14.8) L 03/16/25 02:38 Hct 33.0 % (36-47) L 03/16/25 02:38 MCV 92.7 fl (85-98) 03/16/25 02:38 MCH 30.3 pg (27-33) 03/16/25 02:38 MCHC 32.7 g/dL (30-55) 03/16/25 02:38 RDW 12.9 % (12.1-15.1) 03/16/25 02:38 Plt Count 211 10^3/cmm (157-399) 03/16/25 02:38 MPV 10.0 fL (7.4-10.4) 03/16/25 02:38 Neut % (Auto) 58.1 % 03/16/25 02:38 Lymph % (Auto) 34.3 % 03/16/25 02:38 Tate % (Auto) 6.0 % 03/16/25 02:38 Eos % (Auto) 0.5 % 03/16/25 02:38 Baso % (Auto) 0.4 % 03/16/25 02:38 Neut # (Auto) 4.33 10^3/uL (1.8-8.0) 03/16/25 02:38 Lymph # (Auto) 2.6 10^3/uL (1.5-6.5) 03/16/25 02:38 Tate # (Auto) 0.5 10^3/uL (0.2-0.9) 03/16/25 02:38 Eos # (Auto) 0.0 10^3/uL (0.0-0.8) 03/16/25 02:38 Baso # (Auto) 0.0 10^3/uL (0.0-0.1) 03/16/25 02:38 Nucleated RBC % (auto) 0 % 03/16/25 02:38 Nucleated RBCs # 0.0 /100WBC 03/16/25 02:38 Sodium 136 mmol/L (136-145) 03/16/25 02:38 Potassium 4.3 mmol/L (3.5-5.1) 03/16/25 02:38 Chloride 102 mmol/L (98-107) 03/16/25 02:38 Carbon Dioxide 22 mmol/L (22-29) 03/16/25 02:38 Anion Gap 16.3 (5-19) 03/16/25 02:38 BUN 9 mg/dL (6-20) 03/16/25 02:38 Creatinine 0.5 mg/dL (0.5-0.9) 03/16/25 02:38 GFR Calculation 157.3 mL/min (90-130) H 03/16/25 02:38 Glucose 85 mg/dL (65-115) 03/16/25 02:38 Calculated Osmolality 280 mOsm/kg (285-295) L 03/16/25 02:38 Calcium 9.5 mg/dL (8.5-10.5) 03/16/25 02:38 Lipase 55 U/L (13-60) 03/16/25 02:38 Ser , Semi-Qnt 10677.00 mIU/mL 03/16/25 02:38 Urine Color Yellow (Yellow) 03/16/25 05:08 Urine Appearance Clear (CLEAR) 03/16/25 05:08 Urine pH 6.0 (5-7) 03/16/25 05:08 Ur Specific [place] 1.010 (1.005-1.030) 03/16/25 05:08 Urine Protein Negative (Negative) 03/16/25 05:08 Urine Glucose (UA) Negative (Normal) 03/16/25 05:08 Urine Ketones Negative (Negative) 03/16/25 05:08 Urine Blood Negative (Negative) 03/16/25 05:08 Urine Nitrate Negative (Negative) 03/16/25 05:08 Urine Bilirubin Negative (Negative) 03/16/25 05:08 Urine Urobilinogen 1.0 mg/dL (Negative) 03/16/25 05:08 Ur Leukocyte Esterase Trace (Negative) A 03/16/25 05:08 Urine RBC 0-2 /hpf (0-2) 03/16/25 05:08 Urine WBC 0-5 /hpf (0-5) 03/16/25 05:08 Ur Squamous Epith Cells 0-5 /hpf (0-5) 03/16/25 05:08 Amorphous Sediment Not Reportable 03/16/25 05:08 Urine Bacteria None seen /hpf (NONE) 03/16/25 05:08 Hyaline Casts 0-4 /lpf H 03/16/25 05:08 No radiology studies performed this visit Discharge Plan Discharge Patient Disposition: Home Clinical Impression: Abdominal pain during in second trimester Condition: Stable Prescriptions: No Action [id number] oil 400 mcg-35 mg -25 mg-5 mg tablet,chewable PO .daily Discharge Orders: Discharge ED (Routine); Ordered 03/16/25 Ordered By: Lisa Ren Referrals: Medina,KOLTON VinsonN [Primary Care Provider, Nurse Practitioner] Patient Instructions: Abdominal Pain (ED), Opioid Safety, Pain Management, Patient Portal & Clive Instructions Activity Restrictions/Additional Instructions: You may take Tylenol for pain every 6-8 hours. Continue to monitor your condition very closely. If your condition worsens or additional concerns arise, please return to the emergency department for reassessment. Otherwise, please follow-up at your routine [employer] follow-up. Print Language: Niuean Coding Level of Care Code ED [employer] Merchandising Coordinator for Hola Barnes
[2025-03-16 06:21] LABS: Trichomonas vaginalis (PCR) NOT DETECTED (Negative)
[2025-03-16 06:44] LABS: Neisseria Gonorrhea NOT DETECTED (Negative)
== END 2025-03-16 05:59 | disposition home or self-care (01) ==
PROVIDERS: Emergency Provider Emergency Medicine; PCP Nurse Practitioner Family
DX: O26.892 Other specified pregnancy related conditions, second trimester (principal); Z3A.17 17 weeks gestation of pregnancy; R10.9 Unspecified abdominal pain; Z87.891 Personal history of nicotine dependence
CPT/HCPCS: 36415; 80048; 81001; 83690; 84702; 85025; 87491; 87591; 87661; 99283